=== PATIENT | male | born 1965 | race African-American/Black ===

== ENCOUNTER 2018-12-11 16:57 | Emergency (ER) | payer MEDICAID ==
[~2018-12-11] VITALS: Ht 188 cm; Wt 136.1 kg
[~2018-12-11 16:57] MED LIST: ASPIRIN81 MG ORAL; NKM
[2018-12-11 17:10] VITALS: BP 119/77
--- NOTE | 2018-12-11 17:10 | NUR ---
ED Nurse Note: pt walked in to Ed due to left earache since today. per pt, had multiple flight within 2 weeks. per pt, cleaned with q-tips, and maybe I did too deep. no fever, no discharge. AAO x4. respirations even and non-labored noted. will wait for the further order.
[2018-12-11] MEDS ORDERED: DEBROX15 M1 BOTH EARS (17:26)
[2018-12-11 17:32] VITALS: BP 121/70
--- NOTE | 2018-12-11 17:33 | NUR ---
ER DISCHARGE NOTE: Patient is cleared to be discharged per ERMD, pt is aox4, on room air, with stable vital signs. pt was given dc and prescription instructions, pt was able to verbalize understanding, pt id band removed without complications. pt is able to ambulate with steady gait. pt took all belongings.
--- NOTE | 2018-12-11 19:06 | Emergency Room Report ---
History of Present Illness General Chief Complaint: Earache Source: Patient Present Illness HPI 53-year-old male presents ED for evaluation. Complaining of bilateral ear pain. Started today. States that he felt there was a lot of wax in his ears and started to clean it out and got some of the wax out but states he developed pain in his ears. Dull, 9 out of 10, nonradiating. Denies fevers or chills. Denies cough. Denies any bleeding. No other aggravating relieving factors. Denies any other associated symptoms Allergies: Coded Allergies: No Known Allergies (Unverified , 02/20/14) Patient History Past Medical History: none Past Surgical History: none Pertinent Family History: none Social History: Denies: smoking, alcohol use, drug use Immunizations: UTD Reviewed Nursing Documentation: PMH: Agreed; PSxH: Agreed Nursing Documentation-PMH Past Medical History: No History, Except For Hx Cardiac Problems: Yes Hx Cancer: No Hx Gastrointestinal Problems: No Hx Neurological Problems: No Review of Systems All Other Systems: negative except mentioned in HPI Physical Exam Vital Signs Date Time Temp Pulse Resp B/P (MAP) Pulse Ox O2 Delivery O2 Flow Rate FiO2 12/11/18 17:01 98.4 94 19 119/77 (91) 95 Room Air Sp02 EP Interpretation: reviewed, normal General Appearance: no apparent distress, alert, GCS 15, non-toxic Head: normocephalic Eyes: bilateral eye normal inspection, bilateral eye PERRL ENT: other - bilateral ear canal cerumen impaction. unable to visualize TM Neck: normal inspection, full range of motion, supple, no meningismus Respiratory: normal inspection Cardiovascular #1: normal inspection Gastrointestinal: normal inspection Rectal: deferred Genitourinary: no CVA tenderness Musculoskeletal: normal inspection Neurologic: alert, oriented x3, responsive, motor strength/tone normal, sensory intact, speech normal Psychiatric: normal inspection Skin: no rash Lymphatic: normal inspection Medical Decision Making Diagnostic Impression: Primary Impression: Cerumen impaction Qualified Codes: H61.23 - Impacted cerumen, bilateral ER Course Hospital Course 53 yo M presents to ED c/o bilateral ear pain Differential diagnoses include: TM perforation, otitis externa, otitis media, vestibulitis/labryntitis Clinical course Patient placed on stretcher. After initial history, physical exam reveals a middle aged male in no acute distress. there is signifcant cerumen impaction bilateral ear. unable to visualize TM Discussed findings with patient. Will discharge to home with prescription for Debrox. States he has a PMD Diagnosis - cerumen impaction Stable and discharged to home with Rx Debrox. Followup with PMD. Return to ED if symptoms recur or worsen Last Vital Signs Date Time Temp Pulse Resp B/P (MAP) Pulse Ox O2 Delivery O2 Flow Rate FiO2 12/11/18 17:32 98.1 90 18 121/70 97 Room Air Status: improved Disposition: HOME, SELF-CARE Condition: Stable Scripts Carbamide Peroxide (DEBROX) 15 Ml Drops 10 DROP BOTH EARS TWICE A DAY for 4 Days, ML 0 Refills Prov: Ricardo Hendrix MD 12/11/18 Patient Instructions: Cerumen Impaction Ricardo Hendrix MD Dec 11, 2018 19:06
[2018-12-12] MEDS ORDERED: OFLOXACIN5 ML OT (18:58)
== END 2018-12-11 17:32 | disposition home or self-care (01) ==
LOC: EMR 17:18
DX: H61.23 Impacted cerumen, bilateral (principal)
CPT/HCPCS: 99282

== ENCOUNTER 2018-12-12 18:33 | Emergency (ER) | payer MEDICAID ==
[~2018-12-12] VITALS: Ht 188 cm; Wt 136.1 kg
[~2018-12-12 18:33] MED LIST changes: +DEBROX15 M1 BOTH EARS
[2018-12-12 18:40] VITALS: BP 136/89
--- NOTE | 2018-12-12 18:50 | NUR ---
ED Nurse Note: Patient walked into ED from home c/o left earache since yesterday. patient was here seen at [facility] for the same reason, patient reports he is here today due to worsening pain. patient is alert awake x4 ambulatory steady gait, breathing unlabored and even, speaking in full sentences.
--- NOTE | 2018-12-12 18:56 | Emergency Room Report ---
History of Present Illness General Chief Complaint: Earache Source: Patient, Medical Record Present Illness HPI 53-year-old male with no symptom past medical history here requesting of left ear pain x1 day. Patient was seen at [facility] 1 day ago and was diagnosed with cerumen impaction. Patient reports that he tried to clean his ear with a Q -tip and started feeling pain right after. Denies hearing loss, tinnitus, pus drainage, sore throat, cough and congestion, fever and chills. Has not taken any medication other than [id number] Debrox for symptom relief. Denies vertigo and dizziness. Denies chest pain, shortness of breath, palpitation, no other associated symptoms Allergies: Coded Allergies: No Known Allergies (Unverified , 02/20/14) Patient History Past Medical History: see triage record Past Surgical History: unable to obtain Pertinent Family History: none Immunizations: UTD Reviewed Nursing Documentation: PMH: Agreed; PSxH: Agreed Nursing Documentation-PMH Hx Cardiac Problems: Yes Hx Cancer: No Hx Gastrointestinal Problems: No Hx Neurological Problems: No Review of Systems All Other Systems: negative except mentioned in HPI Physical Exam Vital Signs Date Time Temp Pulse Resp B/P (MAP) Pulse Ox O2 Delivery O2 Flow Rate FiO2 12/12/18 18:40 98.6 87 18 136/89 96 Room Air Sp02 EP Interpretation: reviewed, normal General Appearance: no apparent distress, alert, GCS 15, non-toxic Head: normocephalic, atraumatic Eyes: bilateral eye normal inspection, bilateral eye PERRL ENT: hearing grossly normal, normal pharynx, no angioedema, normal voice, other - Unable to visualize TM due to cerumen impaction however left external ear canal erythematous, no pus drainage noted, tragus is tender to palpation Neck: full range of motion, supple, no meningismus, no bony tend, supple/symm/ no masses Respiratory: chest non-tender, lungs clear, normal breath sounds, no rhonchi, no wheezing, speaking full sentences Cardiovascular #1: regular rate, rhythm, no edema, no murmur Gastrointestinal: normal bowel sounds, non tender, soft, non-distended, no guarding, no rebound Rectal: deferred Genitourinary: no CVA tenderness Musculoskeletal: back normal, gait/station normal, normal range of motion, non- tender Neurologic: alert, oriented x3, responsive, motor strength/tone normal, sensory intact, speech normal Psychiatric: judgement/insight normal, memory normal, mood/affect normal, no suicidal/homicidal ideation Skin: no rash Lymphatic: no adenopathy Medical Decision Making PA Attestation All diagnoses and treatment plans were reviewed and discussed with my supervising physician Dr. Ford Diagnostic Impression: Primary Impression: Otitis externa ER Course 53-year-old male with no symptom past medical history here requesting of left ear pain x1 day. Patient was seen at [facility] 1 day ago and was diagnosed with cerumen impaction. Patient reports that he tried to clean his ear with a Q -tip and started feeling pain right after. Denies hearing loss, tinnitus, pus drainage, sore throat, cough and congestion, fever and chills. Has not taken any medication other than [id number] Debrox for symptom relief. Denies vertigo and dizziness. Denies chest pain, shortness of breath, palpitation, no other associated symptoms Ddx considered but are not limited to: Otitis externa, otitis media, benign positional vertigo, tympanic membrane rupture, tympanic membrane perforation, cerumen impaction Vital signs: are WNL, pt. is afebrile H&PE are most consistent with: Otitis externa ORDERS: Ofloxacin otic drops ED INTERVENTIONS: None required at this time. DISCHARGE: At this time pt. is stable for d/c to home. Will provide printed patient care instructions, and any necessary prescriptions. Care plan and follow up instructions have been discussed with the patient prior to discharge. Patient to follow-up with ear nose throat doctor. Avoid using Q-tips to clean ears. Due to being unable to visualize tympanic membrane unable to see any signs of perforation however patient does not have a presentation. Advised patient to return to the emergency room if worsening symptoms. Last Vital Signs Date Time Temp Pulse Resp B/P (MAP) Pulse Ox O2 Delivery O2 Flow Rate FiO2 12/12/18 18:40 98.6 87 18 136/89 (105) 96 Room Air Disposition: HOME, SELF-CARE Condition: Stable Scripts Ofloxacin (OFLOXACIN) 5 Ml Drops 10 DROP OT DAILY for 7 Days, #5 ML Prov: Cici Ordoñez 12/12/18 Patient Instructions: Otitis Externa, [id number] Additional Instructions: Use drops as directed, avoid using Q-tips or water exposure to the affected side. Follow-up with your primary care provider for referral to ear nose throat doctor. If worsening symptoms return to the emergency room Cici Ordoñez Dec 12, 2018 18:56
[2018-12-12] MEDS ORDERED: OFLOXACIN5 ML OT (18:58)
[2018-12-12 19:00] VITALS: BP 136/89
--- NOTE | 2018-12-12 19:00 | NUR ---
ER DISCHARGE NOTE: Patient is cleared to be discharged per SUBHASH SHAFER, pt is aox4, on room air, with stable vital signs. pt was given dc and prescription instructions, pt was able to verbalize understanding, pt id band removed without complications. pt is able to ambulate with steady gait. pt took all belongings.
== END 2018-12-12 19:00 | disposition home or self-care (01) ==
LOC: EMR 18:50
DX: H60.92 Unspecified otitis externa, left ear (principal)
CPT/HCPCS: 99282